=== PATIENT | male | born 1965 | race Caucasian/White ===

== ENCOUNTER 2018-11-28 06:08 | Day surgery (SDC) | payer OTHER, MEDICAID, SELFPAY ==
[2018-11-19 13:41] VITALS: BMI 26.6
[2018-11-28] VITALS (7 sets, daily range): BP systolic 123–154; BP diastolic 61–88; PULSE 68–77; RESP 13–21; TEMP 36.5–37.1; O2SAT 95–100; BMI 25.4
[2018-11-28] MEDS: LACTATED RINGERS 1,000 ML 42 ML IV (07:02)
--- NOTE | 2018-11-28 07:16 | PM.PREOP ---
Pre-operative Note Interval Note History & Physical reviewed/Exam performed by Physician: Yes Changes to H&P: No
--- NOTE | 2018-11-28 07:17 | PM.OP.1 ---
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 The nature of the procedure including the risks and benefits, alternatives, postoperative course and expected outcome were discussed and all questions answered. Consent was obtained. Operative site confirmed and marked. Surgeon: Malick Meneses Infection Control Nurse: Robert Santiago Anesthesia Type: General and Local Operative Notes Findings: Severe wear on the posterior aspect of the polyethylene tray. Closure Type: primary Specimen(s): none sent Prosthetic devices, grafts, tissues, transplants, or devices: 9 mm Polyethylene tibial tray. Applied: implant(s) Estimated Blood Loss (mL): 5 Blood products transfused: none Tourniquet time (min): 15 Procedure in detail: The patient was taken the operative suite placed under general anesthesia. Prophylactic antibiotics were given prior to surgery. The leg was then prepped and draped in usual sterile fashion. The leg was exsanguinated with an Esmarch dressing and tourniquet raised to 250 torr. Previous medial incision was then utilized. A medial parapatellar arthrotomy was then made. The old polyethylene was removed. There was severe posterior wear. A new 9 mm polyethylene was placed. The knee was stable through range of motion. The wound was copiously irrigated. The knee was injected with a ropivacaine and Exparel solution. Standard the fascial and skin closures were utilized. An Aquacel dressing was applied. The patient tolerated procedure well and was returned recovery room in good condition. Complications: none Post-operative Condition: stable Disposition: same day surgery Plan for aftercare: Patient may progress weight-bearing and activity as tolerated. Keep dressing in place for 7-10 days. Follow-up in 2 weeks.
[2018-11-28] MEDS: CEFAZOLIN 2 GM/100 ML FROZ.PIGGY IV (07:25)
--- NOTE | 2018-11-28 07:58 | SUR.OPER ---
Supine on padded OR bed. Pillow under head, arms secured on padded armboards <90 degree abduction. Safety belt across torso. Non-operative leg secured with tape over blanket over lower leg. Foam padded brace at thigh of operative leg.
[2018-11-28] MEDS: BUPIVACAINE 0.5% W/ EPI (PF) 20 ML, BUPIVACAINE LIPOSOME 266 MG, SODIUM CHLORIDE 0.9% 2... INJ (08:08)
[2018-11-28] MEDS: BUPIVACAINE 0.25% W/ EPI (PF) 20 ML, TRANEXAMIC ACID 1,000 MG, SODIUM CHLORIDE 0.9% 10 ML INJ (08:10)
[2018-11-28] MEDS: OXYCODONE/ACETAMINOPHEN 5/325 TABLET 1 TAB PO (08:59)
--- NOTE | 2018-11-28 09:06 | SUR.PHASEI ---
left knee dressing remains dry and intact (deon wrap)
--- NOTE | 2018-11-28 09:29 | SUR.PHASEII ---
Pt rates pain 10. DRSG CDI, +Neuro checks. VSS. Pt independent with dressing. Escorted to vehicle via [facility] by volunteer. Discharged in stable condition
== END 2018-11-28 09:28 | disposition home or self-care (01) ==
PROVIDERS: PCP Ophthalmology; Visit Provider Orthopaedic Surgery
PROC: (CPT 27446; principal; 2018-11-28 07:45)
DX: T84.84XA Pain due to internal orthopedic prosthetic devices, implants and grafts, initial encounter (principal); T84.063A Wear of articular bearing surface of internal prosthetic left knee joint, initial encounter; M17.12 Unilateral primary osteoarthritis, left knee
CPT/HCPCS: 27486; C1776; C9290; J0690; J1100; J2250; J2704; J3010

== ENCOUNTER 2018-12-11 11:52 | Inpatient (IN) | payer OTHER, MEDICAID, SELFPAY ==
[2018-12-11] VITALS (17 sets, daily range): BP systolic 128–158; BP diastolic 71–89; PULSE 60–98; RESP 12–24; TEMP 36.3–39.1; O2SAT 94–100; BMI 25.8
[2018-12-11] MEDS: LACTATED RINGERS 1,000 ML 125 ML IV ×2 (13:30→21:14)
[2018-12-11] MEDS: HYDROMORPHONE 0.5 MG INJ IV ×2 (13:38→14:52)
[2018-12-11 14:44] LABS: Add Manual Diff / Slide Review NO; Basophils Absolute Auto 100 /uL (0-100); Basophils Percent Auto 0.4 % (0-2); Eosinophils Absolute Auto 0 /uL (0-450); Eosinophils Percent Auto 0.2 % (2-4); Hematocrit 40.3 % (41-53); Hemoglobin 13.8 g/dL (13.5-17.5); Lymphocytes Absolute Auto 800 /uL (1100-4500); Lymphocytes Percent Auto 3.7 % (25-40); Mean Corpuscular HGB Conc 34.2 % (30-36); Mean Corpuscular Hemoglobin 32.2 PG (26-34); Mean Corpuscular Volume 94.4 fL (80-100); Monocytes Absolute Auto 1500 /uL (0-900); Monocytes Percent Auto 7.1 % (3-14); Neutrophils Absolute Auto 18100 /uL (1500-7000); Neutrophils Percent Auto 88.6 % (50-75); Platelet Count 227 X10^3/uL (150-400); Red Blood Cell Count 4.27 X10^6/uL (4.5-5.9); Red Cell Distribution Width 13.4 % (11.6-14.8); White Blood Cell Count 20.4 X10^3/uL (4.5-11.0)
[2018-12-11 15:06] LABS: Erythrocyte Sedimentation Rate 7 MM/HR (0-15)
--- NOTE | 2018-12-11 15:06 | PC.NURSE ---
Day Shift- Pt arrived to unit at 1310 direct admit from [address] office. Arrived via wheelchair with RN Coordinator into room 218. Pt oriented to call light. Pt's mother Ambika in room. Admission assessment complete. Pt only has clothing and shoes left in room. Pt arrived in pain 10/10, shivering, tachypnea, pain to left knee sharp, shooting, pressure. Left knee incision has dermabond glue present, redness, edema 2+, warm to touch. 2 band-aids noted to left outer knee, pt states was from Dr's office this AM. PPP. Rec'd call back from Dr. Dominguez's office at 1322, spoke with RN, request for IVF, pain, antiemetic meds. Current medications listed as post op medications. Rec'd call back from Dr. Dominguez at 1345, new orders rec'd, placed by Aware pt's pain 10/10, very uncomfortable. Verbal order to change IV PRN Dilaudid 0.5mg from Q2hr to Q1hr pre-op. Pt given 2 doses of prn IV Dilaudid at 1340 and 1455. Pain decreased to 8/10. Denied nausea. Pt voided prior to surgery. Pt left for surgery via bed at 1504 with his mother at his side and staff members.
[2018-12-11 15:09] LABS: Blood Urea Nitrogen 14 mg/dL (9-20); C-Reactive Protein Quant 7.4 mg/dL (<1.0); Calcium 9.1 mg/dL (8.4-10.2); Carbon Dioxide 24 mmol/L (22-32); Chloride 100 mmol/L (98-107); Estimated Glomerular Filt Rate > 60.0 mL/min (>60); Glucose 122 mg/dL (70-100); HEMOLYSIS < 15 (0-50); Potassium 3.4 mmol/L (3.4-5.1); Sodium 134 mmol/L (137-145)
--- NOTE | 2018-12-11 15:43 | PT-IP ANOTE ---
checked with nurse and stated that pt is a direct admit from the doctor's office and will be having surgery today at 1600. will f/u with pt after surgery.
--- NOTE | 2018-12-11 16:25 | PM.PREOP ---
Pre-operative Note Interval Note History & Physical reviewed/Exam performed by Physician: Yes Changes to H&P: No
[2018-12-11] MEDS: VANCOMYCIN 1,000 MG/200 ML PIGGYBACK 200 MG IV (16:40)
--- NOTE | 2018-12-11 16:42 | SUR.OPER ---
Supine on padded OR bed, head on pillow, arms secured on padded arm boards at <90 degrees abduction, bump under operative leg, operative leg is under control of surgeon, legs uncrossed, safety belt at thigh, tape over blanket over right lower leg.
[2018-12-11] MEDS: BUPIVACAINE 0.5% W/ EPI (PF) 20 ML, BUPIVACAINE LIPOSOME 266 MG, SODIUM CHLORIDE 0.9% 2... INJ (16:47)
[2018-12-11] MEDS: BUPIVACAINE 0.5% W/ EPI (PF) 10 ML, TRANEXAMIC ACID 1,000 MG, SODIUM CHLORIDE 0.9% 20 ML INJ (16:57)
[2018-12-11] MEDS: SODIUM CHLORIDE IRRIG SOLUTION 3,000 ML, GENTAMICIN 240 MG IRR (16:58)
[2018-12-11] MEDS: VANCOMYCIN 1,000 MG VIAL 1000 MG TOP (17:02)
[2018-12-11] MEDS: LACTATED RINGERS 1,000 ML 42 ML IV (17:24)
[2018-12-11 17:47] LABS: Crystals Body Fluid - IN-HOUSE NONE Present
--- NOTE | 2018-12-11 18:17 | P.OP_ITS ---
Operative Date/Time/Diagnoses Date of procedure: 12/11/18 Time of procedure: 18:18 Pre-op diagnosis: Postoperative infection after polyethylene exchange left medial compartment arthroplasty Post-op diagnosis: other (Postoperative infection and loosening of medial component left knee) Procedure & Clinicians Procedure: Incision and drainage left knee Removal of implants and placement of antibiotic spacer left knee Same procedure as scheduled: No Indications: The patient presents today for the patient presents for urgent I and D after presenting with postoperative infection approximately 2 weeks after polyethylene exchange. The patient was doing great until he noticed symptoms yesterday. He presented with a red hot swollen knee and was unable to bend. The nature of the procedure including the risks and benefits, alternatives, postoperative course and expected outcome were discussed and all questions answered. Consent was obtained. Operative site confirmed and marked. Surgeon: Malick Meneses Director Business Development: Alejandro Dong Anesthesia Type: General and Local Operative Notes Closure Type: primary Specimen(s): other (Fluid was sent for culture, g stain and cell count.) Prosthetic devices, grafts, tissues, transplants, or devices: Antibiotic cement spacer with gentamicin and vanc 0. Applied: implant(s) Estimated Blood Loss (mL): 10 Blood products transfused: none Tourniquet time (min): 90 Procedure in detail: The patient was taken the operative suite. Antibiotics were held until cultures were taken. The leg was prepped draped usual sterile fashion. The leg was exsanguinated with Esmarch dressing tourniquet raised to 250 torr. The knee was aspirated and about 30 cc of thick opaque yellow fluid consistent with infection was obtained. This was sent to the laboratory for Gram stain culture and cell count. The previous incision was utilized. Medial parapatellar arthrotomy was made. There was no evidence of drainage or infection to the skin level. There was some evidence of infection in the subcutaneous tissue but the majority of the fluid was in the joint. The joint was opened and all previous sutures removed. When removing the polyethylene spacer it was noted that the tibial tray was grossly loose. This now represented an infected medial compartment arthroplasty with loosening which required removal of all implants. The tibial and femoral components were removed with osteotomes. All cement was removed including from the peg holes. There was minimal bone loss with implant removal. A moderate amount of bone needed to be removed around the femoral pegs for complete cement removal. The knee was copiously irrigated with a Pulsavac machine using 9 L of saline. The knee was inspected to make sure that all cement and debris was removed. A ceme nt spacer was made with antibiotic cement including both gentamicin and vancomycin. The knee was held in extension and a spacer placed until had fully cured. A drain was placed deep. The extensor mechanism was then closed with interrupted 1. Vicryl sutures. Subcutaneous tissue closed with 2 O Vicryl. The skin was closed mandy. A madiha dressing was applied. The knee was injected with TXA and ropivacaine. The drain will be clamped for the 1st hour after surgery. The patient tolerated procedure well and was returned recovery in good condition. Complications: none Post-operative Condition: stable Disposition: PACU Plan for aftercare: The patient will be placed on vancomycin in the hospital. We will await cultures and switch to appropriate antibiotics when sensitivities are available. Plan IV antibiotics for at least 6 weeks. Once infection is cleared reimplantation of total knee arthroplasty.
--- NOTE | 2018-12-11 18:46 | SUR.PHASEI ---
Patient somnolent, but arouses to voice. VSS. Drsg has scant amount of red drainage. Brace on. Hemovac to compression with no drainage. Patient denies pain and nausea. Will continue to monitor.
[2018-12-11] MEDS: OXYCODONE/ACETAMINOPHEN 5/325 TABLET 1 TAB PO (18:57)
[2018-12-11] MEDS: fentaNYL 100 MCG/2 ML INJ 50 MCG IV (19:00)
--- NOTE | 2018-12-11 19:13 | SUR.PHASEI ---
Report given to Ronna. AJ to transfer to acute care.
[2018-12-11] MEDS: ACETAMINOPHEN 325 MG TABLET 975 MG PO (21:13)
[2018-12-11] MEDS: ASPIRIN EC 81 MG TABLET PO (21:13)
[2018-12-11] MEDS: VANCOMYCIN 1,500 MG/300 ML FROZ.PIGGY 200 MG IV (21:14)
--- NOTE | 2018-12-11 22:33 | PC.NURSE ---
Pt arrived to room at 1930. Awake, emely discomfort. IVF LR infusing via pump as per MD orders. Left knee in brace, dsg has shadow drainage on the proximal aspect. Satisfactory post op course. Call light w/in reach, bed alarm on for pt safety. Continue w/plan of care.
[2018-12-12] VITALS (7 sets, daily range): BP systolic 137–151; BP diastolic 68–84; PULSE 72–84; RESP 16–18; TEMP 36.4–37.6; O2SAT 97–99
[2018-12-12] MEDS: HYDROMORPHONE 2 MG TABLET PO ×6 (03:09→22:28)
[2018-12-12] MEDS: LACTATED RINGERS 1,000 ML 125 ML IV ×2 (04:53→16:44)
[2018-12-12] MEDS: HYDROMORPHONE 0.5 MG INJ IV ×3 (04:53→10:36)
[2018-12-12] MEDS: VANCOMYCIN 1,500 MG/300 ML FROZ.PIGGY 200 MG IV ×3 (05:10→20:56)
[2018-12-12 06:32] LABS: Hematocrit 39.3 % (41-53); Hemoglobin 13.1 g/dL (13.5-17.5); Mean Corpuscular HGB Conc 33.3 % (30-36); Platelet Count 192 X10^3/uL (150-400); Red Blood Cell Count 4.09 X10^6/uL (4.5-5.9); Red Cell Distribution Width 13.4 % (11.6-14.8); White Blood Cell Count 22.1 X10^3/uL (4.5-11.0)
[2018-12-12] MEDS: ASPIRIN EC 81 MG TABLET PO ×2 (09:07→20:55)
[2018-12-12] MEDS: ACETAMINOPHEN 325 MG TABLET 975 MG PO ×3 (09:07→20:54)
[2018-12-12] MEDS: IBUPROFEN 400 MG TABLET PO ×3 (09:13→19:23)
--- NOTE | 2018-12-12 09:22 | P.PN_ITS ---
Subjective Subjective Date Patient Seen: 12/12/18 Time Patient Seen: 09:22 Interval history: Patient is POD#1 s/p incision and drainage left knee with removal of implants and placement of antibiotic spacer with Dr. Meneses. He has had severe pain which has not been well controlled. He has mobilized with PT despite this. No nausea/vomiting, chest pain, shortness of breath. Exam Vital Signs (past 8 hours): - 12/12/18 03:51 12/12/18 05:36 12/12/18 08:00 Temperature 98.7 F 98.7 F Pulse Rate 80 76 Respiratory Rate 16 16 Blood Pressure 151/73 H 145/82 H Pulse Oximetry 97 99 98 Oxygen Delivery Method Nasal Cannula Oxygen Flow Rate 0 Narrative Exam Narrative: 53 year old male in moderate to severe discomfort, sitting in chair. Alert and oriented. ILIR dressing in place over left knee is intact and functional. Area of shadow drainage to right mid section of the dressing has been marked. Patient able to flex/extend the toes but does complain of some numbness. Palpable pedal pulse. Objective Labs Result Diagrams: 12/12/18 06:15 12/11/18 14:35 Labs: Laboratory Results - last 24 hr 12/11/18 12/11/18 12/11/18 14:35 14:35 17:00 WBC 20.4 H RBC 4.27 L Hgb 13.8 Hct 40.3 L MCV 94.4 MCH 32.2 MCHC 34.2 RDW 13.4 Plt Count 227 Neut % (Auto) 88.6 H Lymph % (Auto) 3.7 L [place] % (Auto) 7.1 Eos % (Auto) 0.2 L Baso % (Auto) 0.4 Neut # (Auto) 42094 H Lymph # (Auto) 800 L [place] # (Auto) 1500 H Eos # (Auto) 0 Baso # (Auto) 100 ESR 7 Sodium 134 L Potassium 3.4 Chloride 100 Carbon Dioxide 24 BUN 14 Creatinine 0.70 Estimated GFR > 60.0 BUN/Creatinine Ratio 20.0 Glucose 122 H Calcium 9.1 C-Reactive Protein 7.4 H Fluid Crystals None present 12/12/18 06:15 WBC 22.1 H RBC 4.09 L Hgb 13.1 L Hct 39.3 L MCV 96.0 MCH 32.0 MCHC 33.3 RDW 13.4 Plt Count 192 Neut % (Auto) Lymph % (Auto) [place] % (Auto) Eos % (Auto) Baso % (Auto) Neut # (Auto) Lymph # (Auto) [place] # (Auto) Eos # (Auto) Baso # (Auto) ESR Sodium Potassium Chloride Carbon Dioxide BUN Creatinine Estimated GFR BUN/Creatinine Ratio Glucose Calcium C-Reactive Protein Fluid Crystals Assessment & Plan Assessment & Plan narrative: For pain control we will increase Dilaudid to 2-4mg Q3hrs PRN. May continue IV for breakthrough. Start Ibuprofen 400mg Q4hrs PRN. Continue scheduled Tylenol. He is to continue IV vancomycin pending cultures. Will need PICC line placement and 6 weeks antibiotic therapy upon discharge. Nonweightbearing on the left in brace. Straps may be loosened while he is at rest for comfort. Quality VTE Deep Vein Thrombosis/Pulmonary Embolism Present on Admission: No
--- NOTE | 2018-12-12 11:18 | PT.IIE ---
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, initial encounter (12/11/18) Surgery Performed Operation Date: 12/11/18 16:00 Actual Procedures p Incision and drainage, removal of uni knee implants and replacement of antibiotic spacer(Left) - Malick Meneses MD Surgical History (Last Updated 11/19/18 @ 14:09 by Jennifer Rodriguez RN) Hx of arthroscopy of left knee (Acute) S/P left unicompartmental knee replacement (Acute 08/02/09) Physical Therapy Inpatient Evaluation/Re-Eval M1 PT/OT-IP Prior Functional Status Start: 12/11/18 15:43 Freq: NEEDED Status: Active Protocol: Document 12/12/18 08:35 HH (Rec: 12/12/18 10:53 [email or web address]) Medical Review Prior Functional Status Medical History Reviewed Yes Diet/Fluid Consistency Regular Communication No noted cognitive or communication deficits. Able to make needs known. Mobility and Gait Pt reports I with mobility and gait prior to Monday, when he started using crutches d/t pain with WBing on L leg. Pt reports being able to leave hospital without AD after TKA revision on 11/28/18. Activities of Daily Living and IADL's Pt reports I with all ADLs and IADLs. Prior Functional Level (Other details) Pt able to drive prior to hospitalization. Pt reports being very active and able to hike. Social History Household Members none Living Arrangements Mobile home Number of Floors (Floors) One Floor Number of Stairs To Enter/Railing? 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 Has 2.5 MIKE without railings . Pt has axillary crutches which he brought with him to the hospital but otherwise has no equipment at home. Pt's mother lives close by and has a friend who is possibly able to assist him during weekend as needed. M2 PT-IP Current Condition Start: 12/11/18 15:43 Freq: NEEDED Status: Active Protocol: Document 12/12/18 08:35 HH (Rec: 12/12/18 10:53 [email or web address]) Physical Therapy Current Condition Current Condition Evaluation Date 12/12/18 Treatment Diagnosis L knee I+D, impaired mobility, difficulty walking, decreased activity ashely Onset Date 12/11/18 Precautions Brace Knee immobilizer locked in extension. 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 I was feeling great until 2 days ago. Patient Goals Return home Therapy Pain Assessment Pain When Pain Assessed During Mobility Pain Present Pain Present Pain Reported Location Left Knee Intensity 9 Scale Used Numeric (1 - 10) Description Aching,Sharp,With Movement Pain Behaviors Facial Grimacing,Restlessness, Wincing Pain Management Techniques Distraction,Timing of Activity with Medications M4 PT-IP Mobility and Gait Start: 12/11/18 15:43 Freq: NEEDED Status: Active Protocol: Document 12/12/18 08:35 (Rec: 12/12/18 10:53 [email or web address]) PT-Bed Mobility Assessment Supine to Sit Supine to Sit Minimal Assistance,1 Person Assistance Scooting Scooting to Edge of Bed Minimal Assistance PT-Transfer Assessment Sit to and From Stand Sit to and from Stand Contact Guard Assistance, Minimal Assistance,Moderate Assistance,1 Person Assistance Equipment Transfer Assistive Device Gait Belt,Axillary Crutches Orthotic/Prosthetic Devices or Brace: Yes Transfers Transfer Destination Chair Transfer Technique Stand Step Pivot Transfer Ability Level of Assist Contact Guard Assistance,Use of Upper Extremities Comments Mobility Comments Pt resting in bed upon evaluation. Educated pt regarding his NWB status. Resting vitals BP 145/82, HR 92, O2 98%. Stable vital signs with mobilization and ambulation. Pt able to long sit I but required min A to move legs to EOB (L side) and pivot off bed. Pt reports high spikes in pain when trying to move L leg. Pt required CGA to stand with use of B axillary crutches but min to mod A to control descent with stand to sit d/t pain in L leg . Pt was restless throughout mobilization with cont fidgeting and reports that this is typical as he doesn't like staying too still. Pt left in chair with call light in reach and legs elevated with pillow underneath after ambulation. Gait Assessment Gait Gait Assistance Required: Contact Guard Assist Distance (Feet) 60 Able to Maintain Weight Bearing Status Yes During Gait Assistive Devices Assistive Device Gait Belt,Axillary Crutches Orthotic/Prosthetic Devices or Brace: Yes Gait Deviations General Gait Pattern Antalgic,Step-to Gait Factors Limiting Gait Function Factors Limiting Gait Function Decreased Activity Tolerance, Limited Range of Motion,Pain, Poor Safety Awareness Comments Gait Comments Pt utilized 2 point hop gait pattern with axillary crutches and L LE nonWBing. He was able to maintain L hip hike for NWB on LLE. Pt reported pain in L LE d/t excess weight from knee immobilizer and reported that it was difficult to keep L LE in the air. Pt required CGA for ambulation and to turn. Pt reports increase in L knee pain after ambulation and requested for pain meds from nursing staff. Stair Climbing Assessment Comments Stair Climbing Comments not assessed PT-Balance Assessment Sitting Balance and Reactions Static Sitting Balance Ability Good Dynamic Sitting Balance Ability Good Standing Balance and Reactions Static Standing Balance Ability Fair Dynamic Standing Balance Ability Fair Device Used axillary crutches M5 PT-IP Objective Assessments Start: 12/11/18 15:43 Freq: NEEDED Status: Active Protocol: Document 12/12/18 08:35 (Rec: 12/12/18 10:53 [email or web address]) Orientation Orientation/Cognition Level of Alertness Alert Orientation Name,Age,Birthday,Month,Date, Year,Day of Week,Place, Situation Language Function Ability No Deficits Noted Safety Awareness Understands Safety Issues Memory Description No Deficits Noted Comments No noted cognitive or communication deficits. Pt understood nonWBing restrictions but cont to demonstrate impulsive behavior throughout session. Gross Range of Motion Upper Extremity ROM Assessment Within Functional Limits Lower Extremity ROM Assessment Left Impaired Strength Upper Extremity Strength Assessment Within Functional Limits Lower Extremity Strength Assessment Left Impaired M6 PT-IP Treatment Start: 12/11/18 15:43 Freq: NEEDED Status: Active Protocol: Document 12/12/18 08:35 (Rec: 12/12/18 10:53 [email or web address]) Physical Therapy Treatment Education Education Provided Weight Bearing Status,Safety Other Treatments Other Treatment Performed Educated on nonWBing restrictions and strategies to maintain restrictions with ambulation and mobility. Discussed strategies to assist L LE with movement (using R LE or hands). M7 PT-IP Assessment and Plan Start: 12/11/18 15:43 Freq: NEEDED Status: Active Protocol: Document 12/12/18 08:35 HH (Rec: 12/12/18 10:53 HH [email or web address]) PT Summary Assessment and Plan Potential Rehabilitation Potential Good Status of Condition at Evaluation Evolving Summary Impairments Pain,ROM,Strength,Balance,Bed Mobility,Transfers,Activity Tolerance Assessment Summary Pt is 53 yo male presenting 1 day s/p L knee I+D and removal of TKA implants. Pt had a L TKA revision on 11/28/18 and reports good recovery prior to signs of infection on 12/10/18 . Per operative note, Plan of care is currently 6 weeks of antibiotics prior to reimplantation of L TKA. Pt is currently unaware of this plan and has not yet discussed it with surgical team. Pt reports full I with ADLs, mobility, and ambulation prior to hospitalization. Pt able to ambulate with CGA and B axillary crutches using 2- point gait gattern and maintained nonWBing on L LE. Pt required min to mod A with stand to sit and to move L LE during mobility and transfers and reports 9-10/10 pain with movement. Currently, pt's main limitation is poorly controlled pain. PT currently recommends home with OP PT or homehealth for PT and outpatient antibiotic tx. However, PT will continue to reassess mobility as pt's pain improves. Goals Bed Mobility Goal Independent Transfer Goal Independent Gait Goal Independent Gait Distance 250 Other Goals Ascend/descend 3 stairs with B axillary crutches Days to Meet Goals 5 Frequency of Treatment Frequency Of Treatment Twice a Day Treatment Plan Physical Therapy Treatment Plan Bed Mobility Training,Transfer Training,Gait Training, Therapeutic Exercise,Post Op Education,Discharge Planning, Hot or Cold Pack Other Recommendations and Next Treatment monitor pt's VSS/ pain Focus mobility as ashely transfer training stair training if possible Recommendations To Nursing Amount of Assist Needed 1 Person Assist Discharge Recommendations PT Discharge Recommendations Home,Home Health,Outpatient PT Other Discharge Recommendations PT currently recommends home with OP PT or homehealth for PT and outpatient antibiotic tx. However, PT will continue to reassess mobility as pt's pain improves. Equipment Needed for Home Before shower seat with backrest Discharge raised toilet seat
--- NOTE | 2018-12-12 12:39 | PC.NURSE ---
Day Shift- At beginning of shift, pt sitting up in chair after working with PT. Surgical PA Chetna in pt's room as well. Pt reported 10/10, shaking, states left knee pressure, burning, sharp, shooting, throbbing. IV prn Dilaudid given at 0910 with po Dilaudid 2mg prn, prn Ibuprofen, scheduled Tylenol. Okay to give PO and IV Dilaudid at same time this dose due to high pain level per SANJANA Basilio. ice pack placed to left knee, elevated on a pillow while pt sitting in chair and left knee brace in place. Pain management plan discussed, goal to have better pain management today. Remains non weight bear to left leg. Left knee ILIR dressing in place with 335-40% of drainage shadowing previously marked with pen not exceeding lines to right mid side of dressing. Battery pack has green light flashing. Hemovac in place on compression. Upon reassessment at 1030, pain decreased to 8/10, states a little better. IV PRN Dilaudid given at 1037 with good effect, pain decreased to 5/10 aching and throbbing, with intermittent sharpness. Pt tolerated breakfast and lunch without issue, denies nausea. Voiding qs using urinal indep. Pt does have upper anterior lobe expiratory wheeze upon auscultation. Instructed on deep breathing and coughing exercises and pt able to properly demonstrate use of incentive spirometer. Pt expresses frustration with current hospitalization, support and encouragement provided. Upon reassessment at 1220, pain remains 5/10 more or less, comes in waves. PRN PO Dilaudid 2mg given at 1220. Call light within reach. No further voiced concerns, will continue to monitor.
--- NOTE | 2018-12-12 13:45 | PT.IPTN ---
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, initial encounter (12/11/18) Surgery Performed Operation Date: 12/11/18 16:00 Actual Procedures p Incision and drainage, removal of uni knee implants and replacement of antibiotic spacer(Left) - Malick Meneses MD Physical Therapy Treatment Note M2 PT-IP Current Condition Start: 12/11/18 15:43 Freq: NEEDED Status: Active Protocol: Document 12/12/18 08:35 HH (Rec: 12/12/18 10:53 [id number] Physical Therapy Current Condition Current Condition Evaluation Date 12/12/18 Treatment Diagnosis L knee I+D, impaired mobility, difficulty walking, decreased activity ashely Onset Date 12/11/18 Precautions Brace Knee immobilizer locked in extension. Other Precautions NonWBing, 6 weeks course of antibiotics Weight Bearing Status Weight Bearing Status Non-Weight Bearing M3 PT-IP Subjective Start: 12/11/18 15:43 Freq: NEEDED Status: Active Protocol: Document 12/12/18 13:45 GGD (Rec: 12/12/18 14:55 GGD [id number]) Subjective Physical Therapy Visit Type Type Treatment Note Visit Start Time 13:20 Visit Stop Time 13:44 Total Visit Minutes 24 Number of APPLE CHECKER Visits 1 Physical Therapy Visit Comments Patient Comments Pt states he feeling better. Therapy Pain Assessment Pain When Pain Assessed During Mobility Pain Present Pain Present Pain Reported Location Left Knee Intensity 4 M4 PT-IP Mobility and Gait Start: 12/11/18 15:43 Freq: NEEDED Status: Active Protocol: Document 12/12/18 13:45 GGD (Rec: 12/12/18 14:55 GGD [id number]) PT-Transfer Assessment Sit to and From Stand Sit to and from Stand Contact Guard Assistance,1 Person Assistance,Use of Upper Extremities Equipment Transfer Assistive Device Gait Belt,Axillary Crutches Orthotic/Prosthetic Devices or Brace: Yes Transfers Transfer Destination Chair Transfer Ability Level of Assist Contact Guard Assistance,Use of Upper Extremities Gait Assessment Gait Gait Assistance Required: Contact Guard Assist Distance (Feet) 170 Able to Maintain Weight Bearing Status Yes During Gait Assistive Devices Assistive Device Gait Belt,Axillary Crutches Orthotic/Prosthetic Devices or Brace: Yes Gait Deviations General Gait Pattern Antalgic,Step-to Gait Factors Limiting Gait Function Factors Limiting Gait Function Decreased Activity Tolerance, Limited Range of Motion,Pain, Poor Safety Awareness M5 PT-IP Objective Assessments Start: 12/11/18 15:43 Freq: NEEDED Status: Active Protocol: Document 12/12/18 08:35 HH (Rec: 12/12/18 10:53 HH [id number]) Orientation Orientation/Cognition Level of Alertness Alert Orientation Name,Age,Birthday,Month,Date, Year,Day of Week,Place, Situation Language Function Ability No Deficits Noted Safety Awareness Understands Safety Issues Memory Description No Deficits Noted Comments No noted cognitive or communication deficits. Pt understood nonWBing restrictions but cont to demonstrate impulsive behavior throughout session. Gross Range of Motion Upper Extremity ROM Assessment Within Functional Limits Lower Extremity ROM Assessment Left Impaired Strength Upper Extremity Strength Assessment Within Functional Limits Lower Extremity Strength Assessment Left Impaired M6 PT-IP Treatment Start: 12/11/18 15:43 Freq: NEEDED Status: Active Protocol: Document 12/12/18 13:45 GGD (Rec: 12/12/18 14:55 GGD [id number]) Physical Therapy Treatment Education Education Provided Safety M7 PT-IP Assessment and Plan Start: 12/11/18 15:43 Freq: NEEDED Status: Active Protocol: Document 12/12/18 13:45 GGD (Rec: 12/12/18 14:55 GGD [id number]) PT Summary Assessment and Plan Summary Assessment Summary Pt improve with mobility. He had mild LOB with turning, but was able to self correct. Pt did need cues for pace with gait. He had increase in pain with sit <> stand. Frequency of Treatment Frequency Of Treatment Twice a Day Treatment Plan Physical Therapy Treatment Plan Bed Mobility Training,Transfer Training,Gait Training, Therapeutic Exercise,Post Op Education,Discharge Planning, Hot or Cold Pack Other Recommendations and Next Treatment stair training if possible Focus Recommendations To Nursing Amount of Assist Needed 1 Person Assist Discharge Recommendations PT Discharge Recommendations Home,Home Health,Outpatient PT
--- NOTE | 2018-12-12 15:58 | DI.RAD.S_ITS ---
PROCEDURE: XR CHEST FOR PICC 1V INDICATIONS: line placement COMPARISON: None. FINDINGS: PICC was placed by the intravenous therapy team from the left side. Fluoroscopic spot film demonstrates the tip of PICC projecting to the area of SVC right atrial junction. IMPRESSION: Tip of PICC projects to the area of SVC right atrial junction Dictated by: Dereck Jerez M.D. on 12/12/2018 at 16:55 Approved by: Dereck Jerez M.D. on 12/12/2018 at 16:55
--- NOTE | 2018-12-12 16:05 | CM.DANOTE ---
DCP assessment: EMR reviewed: patient is a 53 yr old male who was admitted for L knee infection. PCP is Dr. Taylor. CM met with patient at the bed side and explained CM role. Patient was alert and oriented at the time of CM Visit. Patient currently lives alone in a single level home. Patient does live next door to his parent. patients Mother heidi is his DPOA. During AM rounds CM was notified that patient was going to need 6 weeks of IV antibiotic treatment and would be having a PICC line placed tomorrow 12/13/2018. CM department will look into doing possible [facility] or [facility] for IV antibiotic treatment at home when d/c. Pending PT and OT notes Insurance: [address] Medicaid. Plan: D/C home with either [facility] or [facility]. CM department to Follow. referral needing to be placed with either [facility] or [facility]. Cristina Hoyos RN.
[2018-12-13] MEDS: IBUPROFEN 400 MG TABLET PO ×2 (00:32→04:41)
[2018-12-13] MEDS: HYDROMORPHONE 2 MG TABLET PO ×2 (01:30→17:32)
[2018-12-13] MEDS: LACTATED RINGERS 1,000 ML 125 ML IV (02:18)
[2018-12-13] MEDS: HYDROMORPHONE 4 MG TABLET PO ×5 (04:41→20:34)
[2018-12-13] MEDS: VANCOMYCIN TROUGH 1 REQUEST MISC (04:41)
[2018-12-13 04:46] VITALS: BP 143/79; PULSE 77; RESP 16; TEMP 36.4; O2SAT 99
[2018-12-13 05:08] LABS: Vancomycin Trough 10.2 ug/mL (10-20)
[2018-12-13] MEDS: VANCOMYCIN 1,500 MG/300 ML FROZ.PIGGY 200 MG IV ×2 (05:25→13:08)
[2018-12-13] MEDS: ACETAMINOPHEN 325 MG TABLET 975 MG PO ×3 (08:18→20:37)
[2018-12-13 08:19] VITALS: BP 131/77; PULSE 69; RESP 16; TEMP 36.6; O2SAT 100
[2018-12-13] MEDS: ASPIRIN EC 81 MG TABLET PO ×2 (08:20→20:34)
--- NOTE | 2018-12-13 10:24 | PM.PN.1 ---
Subjective Subjective Date Patient Seen: 12/13/18 Interval history: Patient is POD#2 s/p incision and drainage left knee with removal of implants and placement of antibiotic spacer with Dr. Meneses. Pain is well controlled with Dilaudid 4mg and Ibuprofen 400mg Q4hrs. Does note some numbness/tingling in the foot. Continues to mobilize well with PT. No chest pain, shortness of breath, fevers, chills. Exam Vital Signs (past 8 hours): - 12/13/18 04:46 12/13/18 08:19 Temperature 97.6 F 98 F Pulse Rate 77 69 Respiratory Rate 16 16 Blood Pressure 143/79 H 131/77 Pulse Oximetry 99 100 Oxygen Delivery Method Room Air Oxygen Flow Rate 0 Narrative Exam Narrative: 53 year old male resting in bed. Alert and oriented in no acute distress. Patient in extension brace. ILIR dressing on and functioning, area of shadow drainage unchanged since previous exam. 30cc from drain last shift. Patient able to flex/extend the toes. Palpable pedal pulse, good capillary refill. Objective Labs Result Diagrams: 12/12/18 06:15 12/11/18 14:35 Labs: Laboratory Results - last 24 hr 12/13/18 04:35 Vancomycin Trough 10.2 Assessment & Plan Assessment & Plan narrative: Aerobic cultures growing strep agalactiae at this point. Anaerobic cultures pending. Will continue Vancomycin until cultures finalized with transition to tailored coverage after. Will require 6 weeks IV antibiotic treatment, PICC line placed yesterday afternoon. Continue to mobilize with PT today and continue current pain control. ASA 81mg BID for DVT prophylaxis. Quality VTE Deep Vein Thrombosis/Pulmonary Embolism Present on Admission: No
--- NOTE | 2018-12-13 10:43 | PC.NURSE ---
Patient given dilaudid po 4mg for complaints of 5/10 pain. He has a Clark drain dressing on that is cdi to l.extremity. Pt is also wearing a brace to his leg to help with stabilization and movement as patient is non weight bearing to that left leg. He is sleeping now and ate well at breakfast.
[2018-12-13 11:45] VITALS: BP 140/85; PULSE 71; RESP 16; TEMP 37.2; O2SAT 98
--- NOTE | 2018-12-13 12:09 | PT.IPTN ---
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, initial encounter (12/11/18) Surgery Performed Operation Date: 12/11/18 16:00 Actual Procedures p Incision and drainage, removal of uni knee implants and replacement of antibiotic spacer(Left) - Malick Meneses MD Physical Therapy Treatment Note M2 PT-IP Current Condition Start: 12/11/18 15:43 Freq: NEEDED Status: Active Protocol: Document 12/12/18 08:35 HH (Rec: 12/12/18 10:53 [id number] Physical Therapy Current Condition Current Condition Evaluation Date 12/12/18 Treatment Diagnosis L knee I+D, impaired mobility, difficulty walking, decreased activity ashely Onset Date 12/11/18 Precautions Brace Knee immobilizer locked in extension. Other Precautions NonWBing, 6 weeks course of antibiotics Weight Bearing Status Weight Bearing Status Non-Weight Bearing M3 PT-IP Subjective Start: 12/11/18 15:43 Freq: NEEDED Status: Active Protocol: Document 12/13/18 12:09 SP (Rec: 12/13/18 12:48 SP [id number]) Subjective Physical Therapy Visit Type Type Treatment Note Visit Start Time 11:52 Visit Stop Time 12:09 Total Visit Minutes 17 Number of TRANSPORTATION TECHNICIAN Visits 2 Physical Therapy Visit Comments Patient Comments P stated doing well, willing to work with PT. Patient Goals Want to complete 3 step stair training using crutches and try to take a longer walk. Therapy Pain Assessment Pain When Pain Assessed During Mobility Pain Present Pain Present Pain Reported Location Left Knee Intensity 5 Scale Used Numeric (1 - 10) Pain Management Techniques Re-positioning,Timing of Activity with Medications M4 PT-IP Mobility and Gait Start: 12/11/18 15:43 Freq: NEEDED Status: Active Protocol: Document 12/13/18 12:09 SP (Rec: 12/13/18 12:48 SP [id number]) PT-Bed Mobility Assessment Rolling Type of Rolling Roll to Left Level of Assist Standby Assistance Supine to Sit Supine to Sit Standby Assistance Scooting Scooting to Edge of Bed Standby Assistance PT-Transfer Assessment Sit to and From Stand Sit to and from Stand Contact Guard Assistance,1 Person Assistance,Use of Upper Extremities Equipment Transfer Assistive Device Gait Belt,Axillary Crutches Orthotic/Prosthetic Devices or Brace: Yes Transfers Transfer Destination Chair Transfer Technique Pt ambulated 3 step to chair using B crutches, NWB LLE. Transfer Ability Level of Assist Contact Guard Assistance,Use of Upper Extremities Comments Mobility Comments Pt was in bed when arrived, able to complete supine> sitting SBA, sit <> stand CGA with fair balance in standing. Reviewed NWB status. Gait Assessment Gait Gait Assistance Required: Standby Assistance,Contact Guard Assist Distance (Feet) 141 Able to Maintain Weight Bearing Status Yes During Gait Assistive Devices Assistive Device Gait Belt,Axillary Crutches Orthotic/Prosthetic Devices or Brace: Yes Gait Deviations General Gait Pattern Antalgic,Step-to Gait Factors Limiting Gait Function Factors Limiting Gait Function Decreased Activity Tolerance, Limited Range of Motion,Pain, Poor Safety Awareness Comments Gait Comments Pt utilized 2 point hop gait pattern with axillary crutches and L LE nonWBing. He was able to maintain L hip hike for NWB on LLE. Pt stated no increase in pain during mobility. Pt required CGA during turns, SBA on straight distances for ambulation, reported pic line placed under LUE and rubs a little on crutches when WB through LUE, better post cuing for decreased pacing during gait. Stair Climbing Assessment Evaluation Level of Assist On Stairs Contact Guard Assistance Devices Stair Climbing Assistive Devices Axillary Crutches Technique/Endurance Stair Climbing Direction Ascend and Descend Stair Climbing Technique Step to Step Number of Steps Climbed 3 Stair Climbing Set # Repetitions (reps) 1 Comments Stair Climbing Comments Pt completed stair training using B crutches while maintaining NWB LLE, fair balance in transition RLE hop step up, no LOB required CGA for safety. PT-Balance Assessment Sitting Balance and Reactions Static Sitting Balance Ability Good Dynamic Sitting Balance Ability Good Standing Balance and Reactions Static Standing Balance Ability Fair Dynamic Standing Balance Ability Fair Device Used axillary crutches M5 PT-IP Objective Assessments Start: 12/11/18 15:43 Freq: NEEDED Status: Active Protocol: Document 12/12/18 08:35 (Rec: 12/12/18 10:53 [id number]) Orientation Orientation/Cognition Level of Alertness Alert Orientation Name,Age,Birthday,Month,Date, Year,Day of Week,Place, Situation Language Function Ability No Deficits Noted Safety Awareness Understands Safety Issues Memory Description No Deficits Noted Comments No noted cognitive or communication deficits. Pt understood nonWBing restrictions but cont to demonstrate impulsive behavior throughout session. Gross Range of Motion Upper Extremity ROM Assessment Within Functional Limits Lower Extremity ROM Assessment Left Impaired Strength Upper Extremity Strength Assessment Within Functional Limits Lower Extremity Strength Assessment Left Impaired M6 PT-IP Treatment Start: 12/11/18 15:43 Freq: NEEDED Status: Active Protocol: Document 12/13/18 12:09 SP (Rec: 12/13/18 12:48 SP [id number]) Physical Therapy Treatment Education Education Provided Safety Other Treatments Other Treatment Performed Educated on NWBing restriction , good maintaining throughout mobility. Pt is able to support LLE with hands during bed mobility. and maintaining L hip hike during gait, stairs . M7 PT-IP Assessment and Plan Start: 12/11/18 15:43 Freq: NEEDED Status: Active Protocol: Document 12/13/18 12:09 SP (Rec: 12/13/18 12:48 SP [id number]) PT Summary Assessment and Plan Potential Rehabilitation Potential Good Status of Condition at Evaluation Evolving Summary Impairments Pain,ROM,Strength,Balance,Bed Mobility,Transfers,Activity Tolerance Assessment Summary Pt improving in mobility and increased distance with gait. Cued during gait for slower pacing to decrease pic line irritation under LUE and safety balance, no LOB SBA-CGA . SBA bed mobility and transfers. Completed stair training required CGA and able to maintain NWB LLE, no LOB. Pt was up in chair when left, call light and needs within reach. Mother in room with him when left. Goals Bed Mobility Goal Independent Transfer Goal Independent Gait Goal Independent Gait Distance 250 Other Goals Ascend/descend 3 stairs with B axillary crutches Days to Meet Goals 5 Frequency of Treatment Frequency Of Treatment Twice a Day Treatment Plan Physical Therapy Treatment Plan Bed Mobility Training,Transfer Training,Gait Training, Therapeutic Exercise,Post Op Education,Discharge Planning, Hot or Cold Pack Recommendations To Nursing Amount of Assist Needed 1 Person Assist Discharge Recommendations PT Discharge Recommendations Home,Home Health,Outpatient PT
[2018-12-13 15:35] VITALS: BP 144/84; PULSE 79; RESP 16; TEMP 37.4; O2SAT 98
--- NOTE | 2018-12-13 16:24 | PT.IPTN ---
This is to certify that I have reviewed this documentation and is involved with this pt's care. 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, initial encounter (12/11/18) Surgery Performed Operation Date: 12/11/18 16:00 Actual Procedures p Incision and drainage, removal of uni knee implants and replacement of antibiotic spacer(Left) - Malick Meneses MD Physical Therapy Treatment Note M2 PT-IP Current Condition Start: 12/11/18 15:43 Freq: NEEDED Status: Active Protocol: Document 12/12/18 08:35 HH (Rec: 12/12/18 10:53 HH [id number]) Physical Therapy Current Condition Current Condition Evaluation Date 12/12/18 Treatment Diagnosis L knee I+D, impaired mobility, difficulty walking, decreased activity ashely Onset Date 12/11/18 Precautions Brace Knee immobilizer locked in extension. Other Precautions NonWBing, 6 weeks course of antibiotics Weight Bearing Status Weight Bearing Status Non-Weight Bearing M3 PT-IP Subjective Start: 12/11/18 15:43 Freq: NEEDED Status: Active Protocol: Document 12/13/18 16:24 MT (Rec: 12/13/18 18:05 MT [email or web address]) Subjective Physical Therapy Visit Type Type Treatment Note Visit Start Time 16:24 Visit Stop Time 16:46 Total Visit Minutes 22 Number of PLASTERER HELPER Visits 0 Physical Therapy Visit Comments Patient Comments Pt stated doing well, willing to work with PT. he was sore around his axillary region from the height of the crutches and asked for them to be adjusted to a lower height . Therapy Pain Assessment Pain When Pain Assessed At Rest Pain Present Pain Present Pain Reported Location Left Knee Intensity 5 Scale Used Numeric (1 - 10) Pain Management Techniques Apply Cold M4 PT-IP Mobility and Gait Start: 12/11/18 15:43 Freq: NEEDED Status: Active Protocol: Document 12/13/18 16:24 MT (Rec: 12/13/18 18:05 MT [email or web address]) PT-Bed Mobility Assessment Supine to Sit Supine to Sit Standby Assistance Scooting Scooting to Edge of Bed Standby Assistance Scooting Up and Down in Bed Standby Assistance PT-Transfer Assessment Sit to and From Stand Sit to and from Stand Contact Guard Assistance,1 Person Assistance,Use of Upper Extremities Equipment Transfer Assistive Device Gait Belt,Axillary Crutches Orthotic/Prosthetic Devices or Brace: Yes Transfer Ability Level of Assist Contact Guard Assistance,Use of Upper Extremities Comments Mobility Comments Pt was sitting in chair with his brace unlatched. Pt was able to correctly don his brace and lock to full extension and manage his lines to prepare for transfer and ambulation. Pt's crutch height was adjusted to avoid irritation of PICC line per pt request. Pt performed his sit to stand with CGA using the axillary crutches. Pt performed all bed mobility with SBA at end of session. He was left with his call light and table in reach and given ice for his knee. Gait Assessment Gait Gait Assistance Required: Contact Guard Assist,1 Person Assist Distance (Feet) 225 Able to Maintain Weight Bearing Status Yes During Gait Assistive Devices Assistive Device Gait Belt,Axillary Crutches Orthotic/Prosthetic Devices or Brace: Yes Gait Deviations General Gait Pattern Antalgic Factors Limiting Gait Function Factors Limiting Gait Function Decreased Activity Tolerance, Limited Range of Motion,Pain, Poor Safety Awareness Comments Gait Comments Pt utilized swing through and 2 point gait pattern with axillary crutches and non weight bearing on L LE. He ambulated CGA 225 ft x2 with axillary crutches. Pt was able to maintain his precautions during gait. He ambulates with the crutches place in a wide stance. He demonstrates impulsivity and frequently stopped abruptly during gait to talk. He demonstrated a couple episodes of unsteadiness but was able to maintain his balance. Stair Climbing Assessment Evaluation Level of Assist On Stairs Contact Guard Assistance, Minimal Assistance,Moderate Assistance,1 Person Assistance Devices Stair Climbing Assistive Devices Axillary Crutches Technique/Endurance Stair Climbing Direction Ascend and Descend Stair Climbing Technique Step to Step Number of Steps Climbed 3 Stair Climbing Set # Repetitions (reps) 1 Comments Stair Climbing Comments Pt ascended/descended the practice stairs Luis-ModA for 1 rep. He was very unsteady and lost his balance 1 time requiring assistance from PT to maintain balance. He continued to be unsteady throughout. During descent, pt relied on wall next to stairs for support to maintain his balance. Attempted ascent/descent of the platform step, which is wider and provides more room for crtuches. Pt was able to ascend/descend step with CGA and no loss of balance. M5 PT-IP Objective Assessments Start: 12/11/18 15:43 Freq: NEEDED Status: Active Protocol: Document 12/12/18 08:35 HH (Rec: 12/12/18 10:53 HH [id number]) Orientation Orientation/Cognition Level of Alertness Alert Orientation Name,Age,Birthday,Month,Date, Year,Day of Week,Place, Situation Language Function Ability No Deficits Noted Safety Awareness Understands Safety Issues Memory Description No Deficits Noted Comments No noted cognitive or communication deficits. Pt understood nonWBing restrictions but cont to demonstrate impulsive behavior throughout session. Gross Range of Motion Upper Extremity ROM Assessment Within Functional Limits Lower Extremity ROM Assessment Left Impaired Strength Upper Extremity Strength Assessment Within Functional Limits Lower Extremity Strength Assessment Left Impaired M6 PT-IP Treatment Start: 12/11/18 15:43 Freq: NEEDED Status: Active Protocol: Document 12/13/18 16:24 MT (Rec: 12/13/18 18:05 MT [email or web address]) Physical Therapy Treatment Education Education Provided Safety M7 PT-IP Assessment and Plan Start: 12/11/18 15:43 Freq: NEEDED Status: Active Protocol: Document 12/13/18 16:24 MT (Rec: 12/13/18 18:05 MT [email or web address]) PT Summary Assessment and Plan Potential Rehabilitation Potential Good Summary Impairments Pain,ROM,Strength,Balance,Bed Mobility,Transfers,Gait, Activity Tolerance Progress Towards Goals Slow Progress - Other Assessment Summary Pt was able to manage his brace and adhere to his weight bearing precautions well. Pt 's crutch height was adjusted and he remarked that it felt better on his L axillary area. Pt demonstrated impulsive behavior with movement and had episodes of unsteadiness during gait and stair training . He generally requires CGA- Luis with gait and stairs. He lost his balance for one episode on the stairs. Pt's decreased safety awareness and unsteadiness with his gait makes him an increased risk of fall. He will therefore benefit from discharge home with assistance and HHPT or d/ c to SNF if he does not have proper assistance at his home. Goals Bed Mobility Goal Independent Transfer Goal Independent,Crutches Gait Goal Independent,Crutches Gait Distance 250 ft Other Goals Ascend/descend 3 stairs with B axillary crutches Independent Days to Meet Goals 5 Frequency of Treatment Frequency Of Treatment Twice a Day Treatment Plan Physical Therapy Treatment Plan Bed Mobility Training,Transfer Training,Gait Training, Therapeutic Exercise,Post Op Education,Discharge Planning, Hot or Cold Pack Other Recommendations and Next Treatment Continue to focus of gait and Focus stair training Recommendations To Nursing Amount of Assist Needed 1 Person Assist Discharge Recommendations PT Discharge Recommendations Home with Assistance,Home Health,SNF Rehab,Outpatient PT
--- NOTE | 2018-12-13 16:42 | CM.DPC ---
DCP: continued: case received, EMR reviewed and followed up on DCP assessment note of yesterday with plan for home IV antibiotics when pt stable and the antibiotic identified. Met now with pt, introduced self and role. Home Infusion agency list: presented: decision: [facility]: referral: faxed now and given by phone discussion to Santo/GRAY campbell. He will leave for his team tomorrow. He says they do work with [employer] and will begin that authorization process. Pt had a PICC line placed today. He does note that he is currently using sanaz crutches and the area the PICC is placed does rub on the one crutch. PT is aware and pt plans to discuss this with the orthopedic team tomorrow. P: home with IV antibiotics. Pt has assist from his mother who lives next door and with a friend in the area. OF NOTE: his address is the [facility]. He says the [place] address is incorrect and he has not lived there for years. He said he did give this information upon admission to . DCP team to follow up tomorrow to continue the coordination. Pt will not d/c until the final antibiotic treatment has been identified. Contact number for [facility]: office: [phone] and fax [phone]. (Santo is not working tomorrow so do not contact his cell).
[2018-12-13] MEDS: CEFTRIAXONE 2 GM/50 ML FROZ.PIGGY IV (19:23)
[2018-12-13 19:40] VITALS: BP 147/83; PULSE 79; RESP 18; TEMP 37.4; O2SAT 99
[2018-12-13 23:55] VITALS: BP 143/80; PULSE 79; RESP 16; TEMP 36.9; O2SAT 99
[2018-12-14] MEDS: HYDROMORPHONE 4 MG TABLET PO ×5 (00:28→13:03)
[2018-12-14 07:50] VITALS: BP 150/81; PULSE 78; RESP 16; TEMP 37.9; O2SAT 99
[2018-12-14] MEDS: ACETAMINOPHEN 325 MG TABLET 975 MG PO (10:01)
[2018-12-14] MEDS: ASPIRIN EC 81 MG TABLET PO (10:01)
--- NOTE | 2018-12-14 10:45 | P.DS_ITS ---
History of Present Illness History of Present Illness Date Patient Seen: 12/14/18 Time Patient Seen: 07:45 Chief complaint: [id number] I+D L KNEE AND PAIN CONTROL Narrative: The patient presents today for the patient presents for urgent I and D after presenting with postoperative infection approximately 2 weeks after polyethylene exchange. The patient was doing great until he noticed symptoms Monday. He presented with a red hot swollen knee and was unable to bend. The nature of the procedure including the risks and benefits, alternatives, postoperative course and expected outcome were discussed and all questions answered. Consent was obtained. Discharge Providers Provider Date of admission: 12/11/18 11:52 Discharge Date: 12/14/18 Primary care physician: Ronal Taylor Consults: 12/11/18 20:11 Consult to Discharge Planning Routine Comment: Consult to Physical Therapy Evaluate & Treat Comment: Brace locked in extension. No ROM. Physician Instructions: Evaluate and Treat Consult to Respiratory Therapy Evaluate & Treat Comment: Physician Instructions: Evaluate and treat Discharge provider: Nikki Hernandez PA-C Summary Hospital Course Discharge Diagnosis: s/p Incision and drainage left knee with Removal of implants and placement of antibiotic spacer left knee Osteoarthritis Infection of left knee Hospital Course: Jose was admitted for incision and drainage left knee with removal of implants and placement of antibiotic spacer left knee with Dr. Meneses. Patient has left knee brace on and is nonweightbearing on the left. Cultures grew Groub B strep agalactiae. Patient had PICC line placed in the hospital. Home infusions for IV ceftriaxone 2 g every 24 hours was setup prior to discharge. The patient has had pain control issues throughout his time at the hospital. Upon discharge to Dilaudid 2 mg every 3 hours, Tylenol 975mg t.i.d., and ibuprofen 400 mg every 4 hours controlled his pain. He states as long as his pain did not get ahead of him he is comfortable. Taking ASA 81 mg b.i.d. for DVT prophylaxis. Drain removed prior to discharge. He mobilized with therapy throughout his stay. Status at Discharge Functional status at discharge: uses cane/walker Exam Vital Signs (past 8 hours): - 12/14/18 07:50 Temperature 100.3 F H Pulse Rate 78 Respiratory Rate 16 Blood Pressure 150/81 H Pulse Oximetry 99 Oxygen Delivery Method Room Air Oxygen Flow Rate 0 Narrative Exam Narrative: Patient lying in bed in no acute distress. He is alert and o riented x3. Left knee brace is on. Clark dressing in place. Drain in place. Calves are soft, compressible. He notes some pain on the inside of his calf that has been consistent well before surgery. Pulses are symmetrical. Pain well controlled this morning but he did have pain control issues last night. Objective Labs Result Diagrams: 12/12/18 06:15 12/11/18 14:35 Discharge Plan Discharge Plan Patient Disposition: Home Discharge Med Rec/Prescriptions Prescriptions: New acetaminophen 325 mg Tablet 975 mg PO TID Qty: 60 RF: 0 aspirin 81 mg Tablet,Delayed Release (Dr/Ec) 81 mg PO BID Qty: 60 RF: 0 hydromorphone 2 mg Tablet 2 mg PO Q3H PRN (Reason: Pain, Severe (7-10)) Qty: 60 RF: 0 ibuprofen 400 mg Tablet 400 mg PO Q4HR PRN (Reason: Pain, Mild (1-3)) Qty: 30 RF: 0 ceftriaxone 2 gram recon soln 2 gram IV Q24H 42 Days Qty: 1 RF: 0 Discontinued acetaminophen [Tylenol Extra Strength] 500 mg Tablet 1,000 mg PO QPM RF: 0 ibuprofen 200 mg Tablet 800 mg PO QAM RF: 0 oxycodone 5 mg tablet 5 mg PO Q4H PRN (Reason: pain) Qty: 60 RF: 0 Follow up/Referrals: Malick Meneses MD [Physician] - Ronal Taylor [Primary Care Provider] - Visit Report/Discharge Packet Instructions: Hydromorphone, Ceftriaxone Injection Discharge Data Primary Care Provider: Ronal Taylor Quality VTE Deep Vein Thrombosis/Pulmonary Embolism Present on Admission: No
--- NOTE | 2018-12-14 11:46 | CM.DPC ---
DCP Discharge Home with Infusion Per Ortho and Ortho PA, pt medically stable to d/c home with home infusion today. SW called [facility] to follow up on their review of new referral yesterday and they confirmed that pt is covered at 100% under his insurance and they can open pt to service today for his Rocephin Q24 that needs to be infused this evening around [id number] and they will provide this in patient's house this evening. SW met bedside with pt and explained role and updated on above and pt confirms he is agreeable with d/c home today with [facility]. Pt confirms that [facility] called him in his room and provided the information regarding their services and providing his infusion this evening. Pt states either his mom or friend will provide transport home today and he will begin calling. Pt working on resting and having a bowel movement prior to leaving for home. DONNY updated RN. SW faxed d/c summary and script for IV-Abx with dose, duration, and frequency to [facility] to review and they confirmed that they received. Plan: Patient to d/c home today via mom or friend POV and [facility] to open pt to service this evening for his dose of Rocephin this evening. JUAN Singh
--- NOTE | 2018-12-14 12:03 | PC.NURSE ---
Pt is very particular about care and pain management. He wants us to wake him up if he is asleep for the dilaudid 4mg. Pt has been having a significant amount of discomfort and needing the pain medication every three hours. His madiha dressing to the l.knee is cdi, he wears a brace to also to this leg and is non weight bearing. Pt refused physical therapy this morning and he also refused breakfast. He will be discharged after his 1300 dose of pain meds.
--- NOTE | 2018-12-14 12:10 | PT-IP ANOTE ---
Attempt to see pt but pt refused due to c/o pain and energy conservation. Pt stated he is confident with d/c home today and he has been no issue d/c home for his prior knee surgeries. Pt has d/c order to home early this afternoon.
== END 2018-12-14 14:10 | disposition home or self-care (01) | DRG 302 ==
PROVIDERS: Orthopaedic Surgery Foot and Ankle Surgery; Admitting Provider Orthopaedic Surgery; PCP Ophthalmology; Visit Provider Orthopaedic Surgery
PROC: 0SRD0EZ Replacement of Left Knee Joint with Articulating Spacer, Open Approach (ICD-10-PCS; CPT 27446; principal; 2018-12-11 16:00)
DX: T84.54XA Infection and inflammatory reaction due to internal left knee prosthesis, initial encounter (principal); T84.033A Mechanical loosening of internal left knee prosthetic joint, initial encounter; B95.1 Streptococcus, group B, as the cause of diseases classified elsewhere
CPT/HCPCS: 36415; 36573; 80048; 80202; 85025; 85027; 85651; 86140; 87070; 87075; 87077; 87186; 87205; 94760; 97116; 97161; 97530; C9290; J0696; J1170; J1885; J2250; J2405; J2704; J3010

== ENCOUNTER 2019-02-20 11:40 | Inpatient (IN) | payer OTHER, MEDICAID, SELFPAY ==
[2018-12-11 13:51] VITALS: BMI 25.8
[2019-02-20] VITALS (12 sets, daily range): BP systolic 116–170; BP diastolic 63–90; PULSE 63–113; RESP 10–18; TEMP 36.3–37.6; O2SAT 88–99; BMI 28.1
--- NOTE | 2019-02-20 | DI.RAD.S_ITS ---
PROCEDURE: XR KNEE LT 1TO2V INDICATIONS: POST OP TECHNIQUE: 3 view(s) of the knee acquired. COMPARISON: None. FINDINGS: Bones: Patient is status post knee joint arthroplasty. Hardware components are in expected positions. Visualized bony structures are intact. Soft tissues: Overlying postoperative changes are noted. IMPRESSION: Post left total knee arthroplasty changes with anatomic left knee alignment. Dictated by: Hernesto Youngblood M.D. on 02/20/2019 at 20:34 Approved by: Hernesto Youngblood M.D. on 02/20/2019 at 20:34
[2019-02-20] MEDS: ACETAMINOPHEN 325 MG TABLET 975 MG PO (12:14)
[2019-02-20] MEDS: CELECOXIB 200 MG CAPSULE PO (12:14)
[2019-02-20] MEDS: PREGABALIN 75 MG CAPSULE PO (12:14)
--- NOTE | 2019-02-20 12:54 | SUR.PREOP ---
Patient clipped and wiped with chlorohexidine
[2019-02-20] MEDS: LACTATED RINGERS 1,000 ML 42 ML IV ×2 (17:00→18:51)
--- NOTE | 2019-02-20 17:07 | PM.PREOP ---
Pre-operative Note Interval Note History & Physical reviewed/Exam performed by Physician: Yes Changes to H&P: No
--- NOTE | 2019-02-20 17:08 | P.OP_ITS ---
Operative Date/Time/Diagnoses Date of procedure: 02/20/19 Time of procedure: 20:00 Pre-op diagnosis: Status post septic medial compartment arthroplasty Post-op diagnosis: same Procedure & Clinicians Procedure: Removal of cement spacer and revision to left total knee arthroplasty Same procedure as scheduled: Yes Indications: The patient presents today for removal of antibiotic spacer and revision to total knee arthroplasty. The patient is status post left knee infection after a polyethylene exchange for a medial compartment arthroplasty. The patient had 6 weeks of IV antibiotics and a 2 week drug holiday. There is no indications of infection clinically or by laboratory prior to surgery. The nature of the procedure including the risks and benefits, alternatives, postoperative course and expected outcome were discussed and all questions answered. Consent was obtained. Operative site confirmed and marked. Surgeon: Malick Meneses [employer] Technician: Alejandro Dong Anesthesia Type: General and Local Operative Notes Findings: When the knee was opened there was no significant fluid or evidence of infection. There was significant scarring around the joint which was excised. The femoral cut was made with a standard +0 cut referenced off the lateral condyle. There is just a central defect on the distal femur. The initial tibial cut was made removing about 10 mm from the less affected lateral side. This cut was very close to the defect on the medial side. The tibia was then recut removing bone through the medial defect which amounted to another 3-4 mm laterally. It was felt this was referable to a medial augment. The knee went into full extension and flexion with good medial lateral balance. Some percutaneous release of the medial collateral ligament was required with a 18 gauge needle. There was some increased lateral as opposed to medial laxity both in flexion and extension which was acceptable. Patellar tracking was excellent. Closure Type: primary Specimen(s): other (Wound cultures were sent from the left knee.) Prosthetic devices, grafts, tissues, transplants, or devices: [employer] 2 5. Femur, legion crossover 5. Tibia with 6 mm offset and 12 mm x 160 mm Press-Fit stem. 15 mm the CS polyethylene tray. 35 mm x 9 mm round patella. Applied: implant(s) Estimated Blood Loss (mL): 25 Blood products transfused: none Tourniquet time (min): 120 Procedure in detail: The patient was taken operative suite and placed under general anesthesia. 2 g of Ancef were given prior to surgery. Patient was also given 1 g of tranexamic acid. The leg was prepped and draped usual sterile fashion. The previous incision was utilized and extended both proximally and distally for a length of about 20 cm. Electrocautery was used to dissect through subcutaneous tissue. A medial parapatellar arthrotomy was then made. There was no free fluid within the knee or any evidence of infection. Cultures were taken. The knee was meticulously exposed removing all scar tissue from the suprapatellar pouch and gutters. A large medial release was performed. The intramedullary femoral pb was placed and the distal femoral cut made at +0 referencing off the lateral condyle. This gave a cut just through bone despite the medial defect. There was a central defect from the peg holes. Whitesides line was marked. The measuring guide was placed with an osteotome under the medial foot to make up for the posterior medial defect. The guide was primarily aligned with Whitesides line. The was pinned the femur measured to a size 5. The 5 guide was placed and all cuts made. The cuts went completely through virgin bone except for the contained defect on the distal portion. Bone quality was good. Next the intramedullary pb was placed into the tibial canal. Sequential reaming was then carried out to a size 12 which had excellent fit. Initial tibial cut was made removing about 10 mm from the less affected lateral side. There was only about 3 more mm necessary to completely incorporate the medial defect. It was thought that would be better to take a deeper cut then placed a medial augment. The tibia was recut removing approximately 13 mm from the lateral side. This gave a nice flat cut through the proximal tibia. The tibia was prepared for the stem. Trial components were placed. The patella was cut removing about 9 mm of bone. The patella was then sized and drilled. Trial reduction showed good overall balance between flexion and extension with just slight tightness medially. This was mostly corrected with a percutaneous release of the medial collateral ligament with an 18 gauge needle. At conclusion there was still some lateral laxity compared to medial both in flexion and extension which was felt to be acceptable. Patellar tracking was excellent. The trial components were removed. The knee was copiously irrigated with a Pulsavac unit. The components were then cemented into place high viscosity vacuum mixed bone cement. The knee was held in extension the patella clamp to swell until the cement fully cured. The knee was irrigated with Betadine solution which was left in place for about 5 minutes while the cement cured. The knee was then copiously irrigated with normal saline. The extensor mechanism was closed with a number of interrupted 1. Vicryl sutures and then a 2. Quill suture. Subcutaneous tissue was closed with 2 O Vicryl and skin with mandy. Surgical adhesive was placed on the skin. A madiha dressing was applied. The patient tolerated procedure well and was returned recovery room in good condition. Complications: none Post-operative Condition: stable Disposition: PACU Plan for aftercare: The patient will be on vancomycin until cultures are clear. Discharge to home with standard total knee protocol.
[2019-02-20] MEDS: CEFAZOLIN 2 GM/100 ML FROZ.PIGGY IV (17:20)
[2019-02-20] MEDS: TRANEXAMIC ACID 1,000 MG VIAL 1000 MG IV (17:40)
--- NOTE | 2019-02-20 17:59 | SUR.OPER ---
Supine on padded OR bed. Pillow under head, arms secured on padded armboards <90 degree abduction. Safety belt across torso. Non-operative leg secured with tape over blanket over lower leg. Operative leg secured in Krzysztof positioner. Foam padded brace at thigh of operative leg.
[2019-02-20] MEDS: BUPIVACAINE 0.25% W/ EPI (PF) 20 ML, TRANEXAMIC ACID 1,000 MG, SODIUM CHLORIDE 0.9% 10 ML INJ (18:12)
[2019-02-20] MEDS: BUPIVACAINE 0.25% W/ EPI (PF) 40 ML, BUPIVACAINE LIPOSOME 266 MG, SODIUM CHLORIDE 0.9% ... INJ (18:14)
[2019-02-20] MEDS: ASPIRIN EC 81 MG TABLET PO (21:48)
[2019-02-20] MEDS: IBUPROFEN 400 MG TABLET PO (21:48)
[2019-02-20] MEDS: ACETAMINOPHEN 325 MG TABLET 650 MG PO (21:48)
[2019-02-20] MEDS: LACTATED RINGERS 1,000 ML 125 ML IV (21:49)
[2019-02-20] MEDS: VANCOMYCIN 1,250 MG in SODIUM CHLORIDE 0.9% 250 ML IV (22:11)
[2019-02-20] MEDS: VANCOMYCIN PER PHARMACY 1 REQUEST MISC (22:29)
[2019-02-21] VITALS: BP 154/77; PULSE 96; RESP 16; TEMP 37; O2SAT 95
[2019-02-21 03:17] VITALS: BP 119/67; PULSE 78; RESP 17; TEMP 37.4; O2SAT 97
[2019-02-21] MEDS: IBUPROFEN 400 MG TABLET PO ×3 (05:19→07:55)
[2019-02-21] MEDS: VANCOMYCIN 1,250 MG in SODIUM CHLORIDE 0.9% 250 ML IV (05:20)
--- NOTE | 2019-02-21 05:33 | PC.NURSE ---
Pt is doing well. Reports pain as 3 out of 10, not wanting any dilaudid yet, Advil is doing well for him for now. He is able to bend is knee around, still has not been OOB yet however. LR@125mL/hr to be locked this morning. Good PO intake. ILIR dressing under deon wrap is functioning. SCDs on throughout night.
[2019-02-21 05:51] LABS: Hematocrit 35.5 % (41-53)
[2019-02-21 07:20] VITALS: BP 100/71; PULSE 70; RESP 16; TEMP 37.2; O2SAT 96
[2019-02-21] MEDS: HYDROMORPHONE 2 MG TABLET PO ×2 (07:56→12:14)
[2019-02-21] MEDS: ACETAMINOPHEN 325 MG TABLET 650 MG PO (08:28)
[2019-02-21] MEDS: ASPIRIN EC 81 MG TABLET PO (08:28)
[2019-02-21] MEDS: hydrOXYzine pamoate 25 MG CAPSULE PO (08:28)
--- NOTE | 2019-02-21 08:30 | PT.IIE ---
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, initial encounter (02/20/19) Surgery Performed Operation Date: 02/20/19 13:45 Actual Procedures p Revision unicompartment to total knee(Left) - Malick Meneses MD Surgical History (Last Updated 11/19/18 @ 14:09 by Jennifer Rodriguez RN) Hx of arthroscopy of left knee (Acute) S/P left unicompartmental knee replacement (Acute 08/02/09) Physical Therapy Inpatient Evaluation/Re-Eval M1 PT/OT-IP Prior Functional Status Start: 02/21/19 09:17 Freq: NEEDED Status: Active Protocol: Document 02/21/19 07:30 AMB (Rec: 02/21/19 10:23 AMB [id number]) Medical Review Prior Functional Status Medical History Reviewed Yes Diet/Fluid Consistency Regular Communication WNL Mobility and Gait Pt was non-weightbearing for months before his revision, and ambulating with crutches. Social History Household Members none Number of Floors (Floors) One Floor Number of Stairs To Enter/Railing? 3 steps without railing- can touch down on wall on one side Home Equipment Crutches Additional Social History Comment Pt has a friend staying with him to help for the next few days M2 PT-IP Current Condition Start: 02/21/19 09:17 Freq: NEEDED Status: Active Protocol: Document 02/21/19 07:30 AMB (Rec: 02/21/19 10:23 AMB [id number]) Physical Therapy Current Condition Current Condition Evaluation Date 02/21/19 Treatment Diagnosis TKA revision (L) Onset Date 02/20/19 Precautions Other Precautions per op report standard TKA protocol Weight Bearing Status Weight Bearing Status Weight Bear as Tolerated M3 PT-IP Subjective Start: 02/21/19 09:17 Freq: NEEDED Status: Active Protocol: Document 02/21/19 07:30 AMB (Rec: 02/21/19 10:23 AMB [id number]) Subjective Physical Therapy Visit Type Type Initial Evaluation Visit Start Time 07:45 Visit Stop Time 08:15 Total Visit Minutes 30 Number of ROUGH CARPENTER Visits 0 Physical Therapy Visit Comments Patient Comments Pt states L quad is quite tight, he has been trying to flex his knee, but it is stiff . No pain at rest, but pain with bending. Therapy Pain Assessment Pain When Pain Assessed During Mobility Pain Present Pain Present Pain Reported Location Left Knee Intensity 5 Scale Used Numeric (1 - 10) Pain Management Techniques Apply Cold,Elevation,Timing of Activity with Medications M4 PT-IP Mobility and Gait Start: 02/21/19 09:17 Freq: NEEDED Status: Active Protocol: Document 02/21/19 07:30 AMB (Rec: 02/21/19 10:23 AMB [id number]) PT-Bed Mobility Assessment Supine to Sit Supine to Sit Standby Assistance Sit to Supine Sit to Supine Independent Scooting Scooting to Edge of Bed Standby Assistance Scooting Up and Down in Bed Independent PT-Transfer Assessment Sit to and From Stand Sit to and from Stand Standby Assistance Equipment Transfer Assistive Device Gait Belt,Front Wheeled Walker ,Axillary Crutches Transfers Transfer Destination Bed Transfer Technique Stand Step Pivot Transfer Ability Level of Assist Standby Assistance Comments Mobility Comments First checked mobility with FWW, then used crutches as that is what patient has at home. Pt has a tendency to rangel with mobility, and needed cues for safety and to move slowly with crutches. Pt internally rotates his L shoulder due to wrist pain with using crutches- pt states he needs to do this due to his wrist pain with using crutches over the last few months. Gait Assessment Gait Gait Assistance Required: Standby Assistance,Contact Guard Assist Able to Maintain Weight Bearing Status Yes During Gait Assistive Devices Assistive Device Gait Belt,Front Wheeled Walker ,Axillary Crutches Gait Deviations General Gait Pattern Antalgic,Decreased Stride Length Factors Limiting Gait Function Factors Limiting Gait Function Decreased Activity Tolerance, Decreased Strength,Limited Range of Motion,Pain,Poor Balance Comments Gait Comments Pt initially hesitant to weightbear through L LE, but that increased with time. Flexing knee with swing through continues to be very difficult. Significant UE weightbearing. Pt does tend to rangel with gait. Ambulated 150 feet with FWW, and then 20 feet with axillary crutches. Stair Climbing Assessment Evaluation Level of Assist On Stairs Contact Guard Assistance Devices Stair Climbing Assistive Devices Left Railing,Right Railing Technique/Endurance Stair Climbing Direction Ascend and Descend Stair Climbing Technique Step to Step Number of Steps Climbed 3 Query Text: Stair Climbing Set # Repetitions (reps) 2 Comments Stair Climbing Comments Pt initially ascended and descended stairs as he had been at home with the crutches - with full weightbearing through his arms step over step gait. This appeared less safe to this PT, so pt was instructed in step to gait pattern. Did not try crutches on stairs yet. PT-Balance Assessment Sitting Balance and Reactions Static Sitting Balance Ability Normal Dynamic Sitting Balance Ability Normal Standing Balance and Reactions Static Standing Balance Ability Good Dynamic Standing Balance Ability Fair Device Used FWW/ crutches M5 PT-IP Objective Assessments Start: 02/21/19 09:17 Freq: NEEDED Status: Active Protocol: Document 02/21/19 07:30 AMB (Rec: 02/21/19 10:23 AMB [id number]) Orientation Orientation/Cognition Level of Alertness Alert Gross Range of Motion Upper Extremity ROM Assessment Within Functional Limits Lower Extremity ROM Assessment Left Impaired Impairments knee AROM grossly 5-40 Strength Upper Extremity Strength Assessment Within Functional Limits Lower Extremity Strength Assessment Left Impaired Hip 4+ Knee 3 Ankle 4+ M6 PT-IP Treatment Start: 02/21/19 09:17 Freq: NEEDED Status: Active Protocol: Document 02/21/19 07:30 AMB (Rec: 02/21/19 10:23 AMB [id number]) Physical Therapy Treatment Exercises Exercises Ankle Pumps,Quad Sets,Heel Slides,Short Arc Quads Education Education Provided Precautions,Weight Bearing Status,Post-Op Packet,Safety M7 PT-IP Assessment and Plan Start: 02/21/19 09:17 Freq: NEEDED Status: Active Protocol: Document 02/21/19 07:30 AMB (Rec: 02/21/19 10:23 AMB [id number]) PT Summary Assessment and Plan Potential Rehabilitation Potential Good Status of Condition at Evaluation Evolving Summary Impairments Pain,ROM,Strength,Balance,Gait ,Activity Tolerance Assessment Summary Noman had a L TKA revision after an infection s/p partial TKA in December. He has been ambulating with crutches, non- weightbearing per his report since then. At this time he is WBAT and is working on his ROM when PT enters the room. He states that this is his 9th knee surgery, and he is hoping to go home soon, but knows they need to figure out his IV antibiotics first. He was somewhat impulsive with mobility but was able to complete all transfers and gait with SBA/ CGA for stairs. Would benefit from crutch training on stairs. Will likely be able to d/c home when medically stable. Goals Bed Mobility Goal Independent Transfer Goal Independent Gait Goal Standby Assistance,Crutches Gait Distance 200 Other Goals Ascend and descend 3 stairs with SBA and good safety awareness with axillary crutches. Frequency of Treatment Frequency Of Treatment Twice a Day Treatment Plan Physical Therapy Treatment Plan Gait Training,Therapeutic Exercise,Post Op Education Other Recommendations and Next Treatment Crutch training, especially Focus with stairs, focus on safety Recommendations To Nursing Amount of Assist Needed 1 Person Assist Discharge Recommendations PT Discharge Recommendations Home with Assistance, Outpatient PT Equipment Needed for Home Before If pt unsafe with crutches Discharge will need FWW
--- NOTE | 2019-02-21 09:06 | PM.PN.1 ---
Subjective Subjective Date Patient Seen: 02/21/19 Interval history: Patient is POD#1 conversion of left antibiotic spacer to TKA with Dr. Meneses. Pain has been mild to moderate and well controlled with medications. He has mobilized with PT and completed stair training. He denies any chest pain or shortness of breath. No nausea or vomiting. Exam Vital Signs (past 8 hours): - 02/21/19 03:17 02/21/19 07:20 Temperature 99.4 F 99.0 F Pulse Rate 78 70 Respiratory Rate 17 16 Blood Pressure 119/67 100/71 Pulse Oximetry 97 96 Oxygen Delivery Method Room Air Oxygen Flow Rate 0 Narrative Exam Narrative: 53 year old male resting comfortably in bed. Alert and oriented in no acute distress. ILIR dressing in place over left knee is intact and functioning, small areas of shadow drainage. Patient able to flex and extend the knee and ankle. Calves soft and compressible bilaterally. Palpable pedal pulse. Objective Labs Result Diagrams: 02/21/19 05:35 Labs: Laboratory Results - last 24 hr 02/21/19 05:35 Hgb 12.0 L Hct 35.5 L Assessment & Plan Assessment & Plan narrative: Patient doing well post operatively. Has mobilized well with PT. Will continue on IV Vancomycin until discharge. At discharge will start Amoxicillin 500mg Q12hrs based on cultures from previous admission which grew Group B strep, at recommendation of pharmacy x 2 weeks. Scripts for Dilaudid and Vistaril provided. SCDs and ASA 81mg BID for DVT prophylaxis. Stable for discharge to home later today. Quality VTE Deep Vein Thrombosis/Pulmonary Embolism Present on Admission: No
[2019-02-21 11:00] VITALS: BP 116/57; PULSE 87; RESP 18; TEMP 36.9; O2SAT 97
--- NOTE | 2019-02-21 11:15 | PT.IPTN ---
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, initial encounter (02/20/19) Surgery Performed Operation Date: 02/20/19 13:45 Actual Procedures p Revision unicompartment to total knee(Left) - Malick Meneses MD Physical Therapy Treatment Note M2 PT-IP Current Condition Start: 02/21/19 09:17 Freq: NEEDED Status: Discharge Protocol: Document 02/21/19 07:30 AMB (Rec: 02/21/19 10:23 AMB [id number]) Physical Therapy Current Condition Current Condition Evaluation Date 02/21/19 Treatment Diagnosis TKA revision (L) Onset Date 02/20/19 Precautions Other Precautions per op report standard TKA protocol Weight Bearing Status Weight Bearing Status Weight Bear as Tolerated M3 PT-IP Subjective Start: 02/21/19 09:17 Freq: NEEDED Status: Discharge Protocol: Document 02/21/19 10:55 SP (Rec: 02/21/19 14:53 SP [id number]) Subjective Physical Therapy Visit Type Type Treatment Note Visit Start Time 10:55 Visit Stop Time 11:15 Total Visit Minutes 20 Number of FUEL CONVERSION 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 Patient Goals Go home today with family. Therapy Pain Assessment Pain When Pain Assessed During Mobility Pain Present Pain Present Pain Reported Location Left Knee Intensity 5 Scale Used 0/10 at rest, 3-5/10 during mobility Pain Management Techniques Re-positioning,Timing of Activity with Medications M4 PT-IP Mobility and Gait Start: 02/21/19 09:17 Freq: NEEDED Status: Discharge Protocol: Document 02/21/19 10:55 SP (Rec: 02/21/19 14:53 SP [id number]) PT-Bed Mobility Assessment Supine to Sit Supine to Sit Independent Sit to Supine Sit to Supine Independent Scooting Scooting to Edge of Bed Independent Scooting Up and Down in Bed Independent PT-Transfer Assessment Sit to and From Stand Sit to and from Stand Standby Assistance Equipment Transfer Assistive Device Gait Belt,Axillary Crutches Transfers Transfer Technique Stand Step Pivot Transfer Ability Level of Assist Standby Assistance Comments Mobility Comments Pt was laying in bed when arrived agreeable to PT. Pt demonstrated I in supine<> sitting with BUE supporting LLE to EOB and into bed himself. HOB flat and no use of rails. Pt was able to sit < >stand using axillary crutches for support with proper hand placement WBAT LLE. Pt walked from R side of bed to stairs and back using axillary crutches sBA. Call light and all needs within reach laying in bed when left. Gait Assessment Gait Gait Assistance Required: Standby Assistance,Contact Guard Assist Distance (Feet) 230 Able to Maintain Weight Bearing Status Yes During Gait Assistive Devices Assistive Device Gait Belt,Axillary Crutches Gait Deviations General Gait Pattern Antalgic,Decreased Stride Length Factors Limiting Gait Function Factors Limiting Gait Function Decreased Activity Tolerance, Decreased Strength,Limited Range of Motion,Pain,Poor Balance Comments Gait Comments Pt ambulated usign axillary crutches during gait R side of bed to stairs and back approx 230 ft provided sBA, cuing provided for WBAT and L knee flexion with heel toe gait for improving normal gait patterning phases with improvement. Stair Climbing Assessment Evaluation Level of Assist On Stairs Standby Assistance Devices Stair Climbing Assistive Devices Axillary Crutches Technique/Endurance Stair Climbing Direction Ascend and Descend Stair Climbing Technique Step to Step Number of Steps Climbed 3 Stair Climbing Set # Repetitions (reps) 1 Comments Stair Climbing Comments Pt was able to ascend/descend 3 stairs using B cruches for support sBA provided with good step to patterning RLE ascending/ LLE descending, no LOB. I have been doing this for a long time. PT-Balance Assessment Sitting Balance and Reactions Static Sitting Balance Ability Normal Dynamic Sitting Balance Ability Normal Standing Balance and Reactions Static Standing Balance Ability Good Dynamic Standing Balance Ability Fair Device Used B crutches M5 PT-IP Objective Assessments Start: 02/21/19 09:17 Freq: NEEDED Status: Discharge Protocol: Document 02/21/19 07:30 AMB (Rec: 02/21/19 10:23 AMB [id number]) Orientation Orientation/Cognition Level of Alertness Alert Gross Range of Motion Upper Extremity ROM Assessment Within Functional Limits Lower Extremity ROM Assessment Left Impaired Impairments knee AROM grossly 5-40 Strength Upper Extremity Strength Assessment Within Functional Limits Lower Extremity Strength Assessment Left Impaired Hip 4+ Knee 3 Ankle 4+ M6 PT-IP Treatment Start: 02/21/19 09:17 Freq: NEEDED Status: Discharge Protocol: Document 02/21/19 10:55 SP (Rec: 02/21/19 14:53 SP [id number]) Physical Therapy Treatment Exercises Exercises Ankle Pumps,Quad Sets,Heel Slides,Short Arc Quads Education Education Provided Precautions,Weight Bearing Status,Post-Op Packet,Safety M7 PT-IP Assessment and Plan Start: 02/21/19 09:17 Freq: NEEDED Status: Discharge Protocol: Document 02/21/19 10:55 SP (Rec: 02/21/19 14:53 SP [id number]) PT Summary Assessment and Plan Potential Rehabilitation Potential Good Status of Condition at Evaluation Evolving Summary Impairments Pain,ROM,Strength,Balance,Gait ,Activity Tolerance Assessment Summary See mobility comments. Pt required SBA during transfer, gait and stair mgt using crutches for mobiltiy. I in all bed mobility supine<> sitting. Pt is ok to d/c home when medically stable, recommend home with assist and outpatient PT for progression on ROM, strength for improvement on indepenedence in functional mobiltiy. Goals Bed Mobility Goal Independent Transfer Goal Independent Gait Goal Standby Assistance,Crutches Gait Distance 200 Other Goals Ascend and descend 3 stairs with SBA and good safety awareness with axillary crutches. Frequency of Treatment Frequency Of Treatment Twice a Day Treatment Plan Physical Therapy Treatment Plan Gait Training,Therapeutic Exercise,Post Op Education Other Recommendations and Next Treatment COmpleted crutch training, Focus including stairs and focus on safety. Recommendations To Nursing Amount of Assist Needed 1 Person Assist Discharge Recommendations PT Discharge Recommendations Home with Assistance, Outpatient PT
--- NOTE | 2019-02-21 12:39 | CM.IDA ---
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 No Advance Directives on File No History Provided By Patient Prior Living Arrangements Apartment/Condo Household Members none Type of transporation used prior to Drives own vehicle admit Independent with ADL's Yes Is patient alert and oriented? Yes Barriers to Discharge No Comment Pt is POD#1 from a conversion of left antibiotic spacer to TKA with Dr. Meneses. Pt has been DC this morning on po abx. Met w/pt this AM and he explained he was eager to return home, he has assist from family and friends as needed. Pt had [facility] for his prior IV abx need. Cleared by therapy team for return home, no barriers to this plan identified by this JUAN Salinas Discharge Plan Home Transportation Arrangement Friend Referrals Initiated None needed
== END 2019-02-21 12:32 | disposition home or self-care (01) | DRG 302 ==
PROVIDERS: Admitting Provider Orthopaedic Surgery; PCP Ophthalmology; Visit Provider Orthopaedic Surgery
PROC: 0SPD0EZ Removal of Articulating Spacer from Left Knee Joint, Open Approach (ICD-10-PCS; principal; 2019-02-20 13:45)
DX: T84.54XA Infection and inflammatory reaction due to internal left knee prosthesis, initial encounter (principal); Z96.652 Presence of left artificial knee joint; B95.1 Streptococcus, group B, as the cause of diseases classified elsewhere
CPT/HCPCS: 36415; 73560; 85014; 85018; 87070; 87075; 87205; 94762; 97116; 97162; C1776; C9290; J0690; J1170; J2250; J2704; J3010

== ENCOUNTER → 2022-12-20 12:33 | Outpatient (CLI) | payer OTHER, MEDICAID, SELFPAY ==
[2019-02-20 11:52] VITALS: BMI 28.1
--- NOTE | 2022-12-20 | DI.RAD.S_ITS ---
PROCEDURE: XR FOOT RT MIN 3V INDICATIONS: FOOT PAIN TECHNIQUE: 3 views of the foot were acquired. COMPARISON: None. FINDINGS: Bones: No fractures or dislocations. No suspicious bony lesions. Mild midfoot osteoarthritis. Mild 1st MTP joint osteoarthritis. Small plantar calcaneal bone spur. Navicular and cuboid accessory ossicles. Soft tissues: No tibiotalar joint effusion. Achilles tendon appears normal. 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 Small calcaneal bone spur. Dictated by: Savanah Bailey MD, PhD on 12/20/2022 at 14:00 Approved by: Savanah Bailey MD, PhD on 12/20/2022 at 14:01
== END ==
PROVIDERS: PCP Ophthalmology; Referring Provider Podiatrist; Visit Provider Podiatrist
DX: M79.676 Pain in unspecified toe(s) (principal); M19.071 Primary osteoarthritis, right ankle and foot; M77.31 Calcaneal spur, right foot
CPT/HCPCS: 73630